=== PATIENT | male | born 1975 | race Caucasian/White ===

== ENCOUNTER 2025-08-08 10:51 | Emergency (ER) | payer BC, SELFPAY ==
[2025-08-08 11:16] VITALS: BP 103/59; PULSE 78; RESP 18; TEMP 37.6; O2SAT 96
--- NOTE | 2025-08-08 11:30 | DI.CT_ITS ---
Exam(s) CT UPPER EXTREMITY LT W EXAM: CT UPPER EXTREMITY LT W CLINICAL HISTORY: Infected dog bite forearm. TECHNIQUE: Imaging Protocol: Axial computed tomography images with coronal and sagittal reformatted images were created and reviewed. CONTRAST MATERIAL: Intravenous: Omnipaque 350. Contrast Volume: 100 ML COMPARISON: No exams were available for comparison FINDINGS: Bones: The osseous structures and articular surfaces are intact. Bony alignment is satisfactory. There is no evidence of osteomyelitis. There is no evidence of joint space narrowing or cystic degeneration seen. No lytic or sclerotic lesions are identified. Soft Tissues: There is subcutaneous edema seen in the posterior and ulnar aspect of the forearm. There is also mild skin thickening in this region. The findings may represent a cellulitis. There is no focal fluid collection is seen to suggest an abscess. The musculature appears grossly unremarkable. Enhancement: No abnormal enhancement is identified. IMPRESSION: 1. Findings which may represent a cellulitis of the forearm but no evidence of an abscess. 2. No evidence of an acute or healing fracture. RADIATION DOSE DELIVERED: 133.25mGy.cm Total DLP 133.25mGy.cm Total DLP DATA REPOSITORY: All CT scans at this facility are submitted to the National Radiology Data Registry (NRDR) Dose Index Registry (DIR) with the [employer] ([employer]). RADIATION OPTIMIZATION: All CT scans at this facility use at least one of these dose optimization techniques: automated exposure control; mA and/or kV adjustment per patient size (includes targeted exams where dose is matched to clinical indication); or iterative reconstruction.
--- NOTE | 2025-08-08 11:41 | W.ED.GENAD ---
Discharge Plan Disposition Patient Disposition: Home Condition: Stable Discharge Details Clinical Impression: Infected dog bite of forearm Primary Care Provider: Unknown,Unknown ED Provider: Betty Srivastava Home Meds and New Rx's Prescriptions: New amoxicillin-pot clavulanate 875-125 mg tablet 1 tab PO BID 13 Days Qty: 26 0RF No Action rosuvastatin 40 mg capsule, sprinkle 40 mg PO DAILY Discharge Instructions Instructions: Animal Bites ED Additional Instructions: You were seen in the emergency department today for evaluation of an infection in the area where you were bit by a dog 2 days ago. In our department a full physical examination performed, had laboratory studies that showed an elevation in your white blood cell count consistent with infection. You had a CT scan that does not show any sign of deep space infection or abscess, your infection is located in the skin and soft tissues, a condition known as cellulitis. You received your first dose of IV antibiotics, and will be sent home on oral antibiotics targeted towards the most common bacteria that caused these infections. Please start that medication tonight, and take all of the medication until it is gone, even if you start to feel better. You can continue to use Tylenol and ibuprofen as needed for management of pain or swelling. If your symptoms are not improving after 48 hours of antibiotic treatment, or if you develop worsening fever, malaise, chills, or swelling/pain of your arm you need to return for reevaluation and at that time would likely require admission for intravenous antibiotics. We did obtain blood cultures, if these are positive for bacteria you will be contacted to return to the hospital for treatment. No news is good news in the case of these studies, if you do not receive a phone call that means that they were negative. Please follow-up with your primary care provider in the next few days to discuss this visit and any symptoms that change, worsen, or persist. Thank you for allowing us to be part of your care. HPI General Mode of arrival: ambulatory. Date/Time Provider Initiated Documentation: 08/08/25 11:25. Limitations to Documentation: no limitations. Information obtained by: patient and old records reviewed. HPI Narrative: This is a 57-year-old male patient presenting for evaluation after a dog bite. 2 days ago he was bitten by a family member's dog, who is up-to-date on vaccines. He reports that he is up-to-date on his tetanus shot, washed out the area with soap and water and has been using antibiotic ointment. Last night he felt very unwell, with fevers and chills, general malaise, and this morning noted worsening swelling, redness, and streaking up the left arm. The patient was seen at urgent care but advised to come here given their limitation in terms of IV antibiotic availability. The patient reports that he has been using ibuprofen at home, has not measured a fever, has baseline postchemotherapy neuropathy but no new numbness, tingling, or weakness distal to this bite. Related Data Home Medications ?Medication ?Instructions ?Recorded ?Confirmed amoxicillin 875 mg-potassium 1 tab PO BID 13 days #26 tabs 08/08/25 clavulanate 125 mg tablet rosuvastatin 40 mg sprinkle capsule 40 mg PO DAILY 08/08/25 08/08/25 Previous Rx's ?Medication ?Instructions ?Recorded amoxicillin 875 mg-potassium 1 tab PO BID 13 days #26 tabs 08/08/25 clavulanate 125 mg tablet Allergies Allergy/AdvReac Type Severity Reaction Status Date / Time No Known Allergies Allergy Verified 08/08/25 11:22 General Stated Complaint: AnimalBite TREY: 3 Exam Narrative Exam Narrative: Gen: Awake and alert, in no apparent distress HEENT: Non-icteric sclera Neck: Supple Lungs: No apparent respiratory distress, normal respiratory effort. CV: Appears well perfused Abdomen: Non-distended MSK: Moves 4 extremities without apparent limitation in ROM. The patient has 2 puncture wounds to the forearm of the left upper extremity, with surrounding poorly demarcated redness, induration, and warmth. He has streaking up the medial surface of the left arm to just proximal to the elbow. Skin: Visualized skin without rashes, cyanosis. Neuro: Normal Gait, no obvious focal deficits or facial asymmetry. Speaks in full, clear sentences. Psych: Appropriate for situation. Course Vital Signs Vital signs: Vital Signs Temperature 37.6 C H 08/08/25 11:16 Pulse 78 08/08/25 11:16 Respiratory Rate 18 08/08/25 11:16 Blood Pressure 103/59 L 08/08/25 11:16 Pulse Oximetry 96 08/08/25 11:16 Temperature 37.6 C H 08/08/25 11:16 Temperature Source Oral 08/08/25 11:16 Pulse 78 08/08/25 11:16 Respiratory Rate 18 08/08/25 11:16 Blood Pressure 103/59 L 08/08/25 11:16 Blood Pressure Position Sitting 08/08/25 11:16 Pulse Oximetry 96 08/08/25 11:16 Oxygen Delivery Method Room Air 08/08/25 11:16 Oxygen Flow Rate 0 08/08/25 11:16 Pain Level 0 08/08/25 11:16 Lab/Test Results Lab/Test Results: 08/08/25 11:32 Blood Blood Culture - Pending 08/08/25 11:32 Blood Blood Culture - Pending Medical Decision Making This is a 49-year-old male patient presenting for evaluation after an animal bite. Differential includes but is not limited to infected animal bite, cellulitis, certainly considered abscess, myositis, foreign body. The mechanism is less concerning for fracture, dislocation, neurovascular injury. The patient is reassuringly without fever or tachycardia at this time, though I did consider sepsis and bacteremia. We will obtain labs to include blood cultures, CBC, CMP, magnesium, and inflammatory markers. I will obtain a CT with contrast of the affected left upper extremity to evaluate for deep space changes that may require surgical washout. After cultures are obtained I will provide the patient with a dose of Unasyn, and will provide him with Tylenol for initial management of his discomfort. - I reviewed the patient's laboratory studies, which do show leukocytosis to 14, mild anemia but no thrombocytopenia. Chemistry panel is without electrolyte derangements, evidence of kidney or liver dysfunction. ESR is low but the CRP is slightly elevated to 7.2. CT imaging reviewed by myself, showing evidence of cellulitis but no abscess or deep space infections. The patient did have a slightly low blood pressure on reassessment, has been on the low side of normal during his ED stay, was provided with a liter of IV fluids for rehydration. His blood pressure improved slightly, and he was counseled to continue to maintain good hydration in the outpatient setting. Given the largely reassuring workup, I do feel it is reasonable to attempt oral antibiosis in this patient. I did international student counselor the patient that he would be contacted with any positive results of his blood cultures, and should return to care if he does not have improvement in his symptoms after 48 hours of antibiotics. At this time, the patient has had a full medical evaluation and is safe for discharge to home. They are hemodynamically stable, ambulatory, and tolerating PO. They are understanding of the follow-up plan and return precautions. They left our facility without incident. Betty Srivastava MD [facility] All Active Problems (Updated 08/08/25 @ 12:53 by Betty Srivastava MD) Infected dog bite of forearm (Acute) Social History Smoking/Tobacco Use Status: Never Smoking risk assessment performed?: Yes Alcohol Intake: never Substance use type: does not use
--- NOTE | 2025-08-08 11:52 | NUR.NOTE ---
Animal bite report reported to [facility] Clerk and emailed to [email or web address]. Nursing Note:
[2025-08-08] MEDS: ACETAMINOPHEN 1,000 MG/100 ML BAG 400 MG IVPB (11:56)
[2025-08-08 12:05] LABS: Abs Immature Grans 0.08 10^3/uL (0.0-0.06); HCT 38.4 % (40.0-50.0); HGB 13.0 g/dL (13.5-17.5); Immature Grans % 0.6 %; MCH 29.3 pg (27.0-33.0); MCHC 33.9 % (32.0-36.0); MCV 87 fL (80-95); MPV 10.3 fL (8.0-11.0); Platelet Count 220 10^3/uL (130-400); RBC 4.44 10^6/uL (4.36-5.78); RDW 13.2 % (11.8-14.1); RDW-SD 41.3 fL; WBC 14.44 10^3/uL (4.4-10.8)
[2025-08-08 12:07] LABS: ESR 4 mm/hr (0-15)
[2025-08-08] MEDS: Normal Saline - Diluent 50 ML VIAL IJ (12:21)
[2025-08-08] MEDS: Normal Saline Flush 10 ML SYR IVP (12:21)
[2025-08-08 12:22] LABS: ALT 31 U/L (16-63); AST 20 U/L (15-37); Albumin 4.3 g/dL (3.4-5.0); Alkaline Phosphatase 69 U/L (46-116); Anion Gap 10.1 mmol/L (3-11); BUN 13 mg/dL (7-18); Bilirubin, Total 0.9 mg/dL (0.2-1.0); C-Reactive Protein 7.28 mg/dL (<or=0.5); CO2 26.9 mmol/L (21.0-32.0); Calcium 8.6 mg/dL (8.5-10.1); Chloride 102 mmol/L (98-107); Estimated GFR 81.78 (mL/min/1.73m2); Glucose 107 mg/dL (74-106); Magnesium 1.9 mg/dL (1.8-2.4); Potassium 3.6 mmol/L (3.5-5.1); Sodium 139 mmol/L (136-145); Total Protein 7.6 g/dL (6.4-8.2)
[2025-08-08] MEDS: Omnipaque 350 MG/ML 100 ML BTL IJ (12:22)
[2025-08-08] MEDS: Lactated Ringers 1,000 ML 1000 ML IV (13:18)
[2025-08-08] MEDS: Amox. 875/Clav. 125, 2 TABS/BTL 1 TAB PO (14:11)
[2025-08-08 14:31] VITALS: BP 97/52
== END 2025-08-08 14:32 | disposition home or self-care (01) ==
PROVIDERS: Emergency Provider Emergency Medicine
DX: L08.9 Local infection of the skin and subcutaneous tissue, unspecified (principal); S41.152A Open bite of left upper arm, initial encounter; W54.0XXA Bitten by dog, initial encounter
CPT/HCPCS: 99285; 99284; 36415; 96375; 80053; 85652; 87040; 96361; 96365; 73201; 83735; 85025; 86140; J0131; J0295; J3490